=== PATIENT | male | born 1965 | race Caucasian/White ===

== ENCOUNTER 2023-08-13 13:50 | Outpatient (CLI) | payer MEDICAID, SELFPAY ==
--- NOTE | ~2023-08-13 | XR_ITS ---
XR thoracic spine 3V DATE: 08/13/2023 14:37 INDICATION: Thoracic spine pain TECHNIQUE: Standing AP and lateral and swimmer views COMPARISON: None FINDINGS: Osteopenia. Moderate degenerative disc disease at C4-5, C5-6 and to a greater extent C6-7. Mild degenerative spurring of the thoracic spine. No fracture or dislocation or bone destruction. The thoracic pedicles are intact. No paraspinal soft tissue thickening. IMPRESSION: Degenerative changes of the cervical and thoracic spine Osteopenia Reviewed, dictated and finalized at location B.
== END 2023-08-13 13:51 ==
PROVIDERS: PCP Nurse Practitioner; Visit Provider Nurse Practitioner
DX: M47.814 Spondylosis without myelopathy or radiculopathy, thoracic region (principal); M47.812 Spondylosis without myelopathy or radiculopathy, cervical region
CPT/HCPCS: 72072

== ENCOUNTER 2024-02-16 12:23 | Outpatient (CLI) | payer OTHER, SELFPAY ==
--- NOTE | ~2024-02-16 | XR_ITS ---
XR elbow RT 2V Ordering provider: Valentina Watson, ROPE COILING MACHINE OPERATOR-C History: . M25.521 - Pain in right elbow . Comparison: None. FINDINGS: BONES: No acute fracture or dislocation. JOINT SPACES: Normal. SOFT TISSUES: Unremarkable. No definite joint effusion. IMPRESSION: No acute osseous abnormality of the right elbow. Reviewed, dictated and finalized at location A.
--- NOTE | ~2024-02-16 | XR_ITS ---
XR_CERV2-3V_CR Ordering provider: Valentina Watson NP-C History: . M54.2 - Cervicalgia . Comparison: None. FINDINGS: VERTEBRAL BODIES: Normal height and alignment. No visible fracture or subluxation. The dens is intact . Mild degenerative changes. DISK SPACES: Well maintained. PARASPINOUS SOFT TISSUES: No prevertebral soft tissue swelling. IMPRESSION: No acute osseous abnormality cervical spine. Reviewed, dictated and finalized at location A.
== END 2024-02-16 12:24 | disposition home or self-care (01) ==
LOC: ANHIMG 12:26
PROVIDERS: PCP Nurse Practitioner; Visit Provider Nurse Practitioner
DX: M25.521 Pain in right elbow (principal); M54.2 Cervicalgia
CPT/HCPCS: 72040; 73070

== ENCOUNTER 2024-09-29 15:37 | Outpatient (CLI) | payer BC, SELFPAY ==
--- NOTE | ~2024-09-29 | US_ITS ---
EXAM: RENAL ULTRASOUND HISTORY: R80.9 - Proteinuria, unspecified COMPARISON: None FINDINGS: RIGHT KIDNEY: 12.6 x 6.9 x 6.7 cm. The parenchyma of the right kidney is unremarkable in echogenicity. No hydronephrosis or bulky renal calculi. LEFT KIDNEY: 13.8 x 6.6 x 5.8 cm No hydronephrosis or renal calculi. The parenchyma of the left kidney is unremarkable in echogenicity. BLADDER: Distended, and otherwise unremarkable. IMPRESSION: No hydronephrosis or renal calculi. Unremarkable sonographic evaluation of the bilateral kidneys, as detailed above Reviewed, dictated and finalized at location A.
== END 2024-09-29 15:38 | disposition home or self-care (01) ==
LOC: MICIMG 15:38
PROVIDERS: PCP Nurse Practitioner; Visit Provider Internal Medicine Nephrology
DX: R80.9 Proteinuria, unspecified (principal); E11.29 Type 2 diabetes mellitus with other diabetic kidney complication; I10 Essential (primary) hypertension
CPT/HCPCS: 76775

== ENCOUNTER 2024-11-05 00:53 | Day surgery (SDC) | payer BC, SELFPAY ==
[2024-10-28 16:13] VITALS: BMI 31.4
--- OUTSIDE RECORDS SUMMARY | 2024-11-05 00:55 | XMS_ITS | Clinical Summary ---
Author Organization [facility] [employer] Address [address] [place] [address] Care Team Providers Care Systems Integration Advisor Name Role Phone Valentina Watson NP Primary Care Provider [phone] Allergies No known active allergies Medications amLODIPine (NORVASC) 5 mg tablet Take 1 tablet (5 mg total) by mouth daily 0 Active atorvastatin (LIPITOR) 20 mg tablet Take 1 tablet (20 mg total) by mouth daily 0 Active glimepiride (AMARYL) 4 mg tablet TAKE 1 TABLET BY MOUTH ONCE DAILY IN THE MORNING WITH BREAKFAST 0 Active metFORMIN (GLUCOPHAGE) 1,000 mg tablet Take 1 tablet (1,000 mg total) by mouth 2 (two) times a day 0 Active aspirin 81 mg enteric coated tablet Take 1 tablet (81 mg total) by mouth daily Active albuterol sulfate (VENTOLIN HFA INHAL) Inhale Active cod liver oiL capsuleIndicat ions:Vitamin D Deficiency,vit rosado A deficiency 1 capsule Active garlic 1,000 mg capsule Take by mouth Activ e lisinopriL (PRINIVIL,ZEST RIL) 20 mg tablet Take 1 tablet (20 mg total) by mouth daily Active betamethasone valerate (VALISONE) 0.1 % ointment Apply topically 2 (two) times a day Apply for 3 week on and 1 week off then repeat. 30 g 3 4 Active Trulicity 1.5 mg/0.5 mL pen injector INJECT 1.5 MG SUBCUTANEOUSLY ONCE EVERY 7 DAYS 4 Active Active Problems Problem Noted Date Diagnosed Date Hypertension associated with diabetes 04/14/2023 Mixed diabetic hyperlipidemi a associated with type 2 diabetes mellitus 04/14/2023 Class 1 obesity due to exces s calories with serious comorbidity and body mass index (BMI) of 32.0 to 32.9 in adult 04/14/2023 Dysfunction of both eustachian tubes 01/29/2022 Assessment & Plan (01/30/2022 7:03 PM CDT): He has a long history of eustachian tube problems. I talked with him about further management of this. I am recommending treating with a low dose of prednisone along with a course of Ceftin for 2 weeks. That hopefully will help. If his symptoms continue I have recommended that he return. Consider myringotomy tubes at that time. He understands and is agreeable that. Surgical History Surgery Date Site/Laterality Comments SINUS SURGERY MYRINGOTOMY W/ TUBES Medical History Medical History Date Comments Essential hypertension Otitis externa, left Diabetes (HCC) Hyperlipidemia Family History Medical History Relation Name Comments Emphysema Father Heart disease Maternal Grandfather No Known Problems Mother Cancer Other Heart disease Paternal Grandfather Relation Name Status Comments Father Maternal Grandfather Mother Alive Other Paternal Grandfather Social History Tobacco Use Types Packs/Day Years Used Date Smoking Tobacco: Never Smokeless Tobacco: Never Tobacco Cessation:Counseling Given: Not Answered Sex and Gender Information Value Date Recorded Sex Assigned at Not on file Legal Sex 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:58 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 Gender Identity Not on file Sexual Orientation Not on file Obstetrics History Last Filed Vital Signs Vital Sign Reading Time Taken Comments Blood Pressure 134/70 04/15/2024 4:06 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 Pulse 79 04/15/2024 3:42 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 Temperature 36.8 C (98.2 F) 02/09/2020 9:01 AM CDT Respiratory Rate 18 01/29/2022 4:23 PM CDT Oxygen Saturation 95% 04/15/2024 3:42 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 Inhaled Oxygen Concentration - - Weight 102.5 kg (226 lb) 04/15/2024 3:42 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 Height 180.3 cm (5' 11) 04/15/2024 3:42 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 Body Mass Index 31.52 04/15/2024 3:42 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 Plan of Treatment Health Maintenance Due Date Last Done Comments Albumin Creatinine Ratio, Urine 1967 Colon Cancer Screening-Colonoscopy 1967 Depression Screening 1967 Hemoglobin A1C 1967 Hepatitis C Screening 1967 Prostate Cancer Screening-PSA 1967 eGFR 1967 Dilated Eye Exam 1967 Foot Exam 1967 DTaP/Tdap/Td Vaccine (1 - Tdap) 10/20/1978 Hepatitis B Screening 10/20/1985 Regular Well Visit/Exam 18-64 10/20/1985 Pneumococcal vaccine <65 (1 of 2 - PCV) 10/20/1986 Zoster Vaccine (1 of 2) 10/20/2017 Covid-19 Vaccine ( - season) 2024 05/04/2021, 08/25/2020, 08/04/2020 Influenza Vaccine (Season Ended) 2025 Lipid Panel 04/15/2025 04/15/2024, 03/27, 04/30/2015 Procedures Procedure Name Priority Date/Time Associated Diagnosis Comments POCT LIPID PANEL Routine 04/15/2024 3:50 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 Lipid screening from Last 3 Months or Most Recently Relevant to Health Maintenance Results * POCT lipid panel (04/15/2024 3:50 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) Cholesterol, POC 138 mg/dL HDL, POC 25 mg/dL Triglycerides, POC 341 mg/dL LDL Cholesterol POC 44 mg/dL Chol/HDL Ratio, POC 1.8 Non-HDL Cholesterol, POC 112 mg/dL Cholesterol Total, POC 138 mg/dL Capillary blood 04/15/2024 3 :50 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 iVcenta Gottlieb NP POINT OF CARE TEST ORDERA BLES Final Result from Last 3 Months or Most Recently Relevant to Health Maintenance Insurance [facility] Advance Directives For more information, please contact: [phone] Documents on File Type Date Recorded Patient Reeling And Tubing Machine Operator Expl anation ADVANCE DIRECTIVE 09/13/2012 12:00 AM AMIE Shin OF BOILER REPAIRMAN FINANCIAL/MEDICAL Care Teams Systems Integration Advisor Relationship Specialty Start Date End Date Valentina Watson NP PCP - General Internal Medicine 11/07/23
--- OUTSIDE RECORDS SUMMARY | 2024-11-05 00:55 | XMS_ITS | Referral Summary ---
Author Organization [facility] [employer] Address [address] [email or web address] [address] Care Team Providers Care Dry Cleaner Helper Name Role Phone Valentina Watson NP Primary Care Provider [phone]- [phone] Allergies No known active allergies Medications amLODIPine [...] time. He understands and is agreeable that. Social History Tobacco Use Types Packs/Day Years Used Date Smoking Tobacco: Never Smokeless Tobacco: Never Tobacco Cessation:Counseling Given: Not Answered Sex and Gender Information Value Date Recorded Sex Assigned at Not on file Legal Sex Male 5:58 PM PAINT GRINDER Gender Identity Not on file Sexual Orientation Not on file Last Filed Vital Signs Vital Sign Reading Time Taken Comments Blood Pressure 134/70 04/15/2024 4:06 PM PAINT GRINDER Pulse 79 04/15/2024 3:42 PM PAINT GRINDER Temperature 36.8 C (98.2 F) 02/09/2020 9:01 AM CDT Respiratory Rate 18 01/29/2022 4:23 PM CDT Oxygen Saturation 95% 04/15/2024 3:42 PM PAINT GRINDER Inhaled Oxygen Concentration - - Weight 102.5 kg (226 lb) 04/15/2024 3:42 PM PAINT GRINDER Height 180.3 cm (5' 11) 04/15/2024 3:42 PM PAINT GRINDER Body Mass Index 31.52 04/15/2024 3:42 PM PAINT GRINDER Plan of Treatment Not on file Procedures Procedure Name Priority Date/Time Associated Diagnosis Comments POCT LIPID PANEL Routine 04/15/2024 3:50 PM PAINT GRINDER Lipid screening from Last 3 Months or Most Recently Relevant to Health Maintenance Results * POCT lipid panel (04/15/2024 3:50 PM PAINT GRINDER) Cholesterol, POC 138 mg/dL HDL, POC 25 mg/dL Triglycerides, POC 341 mg/dL LDL Cholesterol POC 44 mg/dL Chol/HDL Ratio, POC 1.8 Non-HDL Cholesterol, POC 112 mg/dL Cholesterol Total, POC 138 mg/dL Capillary blood 04/15/2024 3 :50 PM PAINT GRINDER Vicenta Gottlieb NP POINT OF CARE TEST ORDERA BLES Final Result from Last 3 Months or Most Recently Relevant to Health Maintenance Insurance [facility] Advance Directives For more information, please contact: [phone] Documents on File Type Date Recorded Patient Rn Medication Expl anation ADVANCE DIRECTIVE 09/13/2012 12:00 AM AMIE Shin OF MECHANICAL LABORATORY TECHNICIAN FINANCIAL/MEDICAL Care Teams Dry Cleaner Helper Relationship Specialty Start Date End Date Valentina Watson NP PCP - General Internal Medicine 11/07/23
--- OUTSIDE RECORDS SUMMARY | 2024-11-05 00:55 | XMS_ITS | Clinical Summary ---
Author Organization [facility] [employer] Address [address] [place] [address] Care Team Providers Care Data Integrity Consultant Name Role Phone Valentina Watson PATTERN VAULT CLERK-TAILOR HELPER Primary Care Provider + Source Comments [facility],non-owned Affiliates and Associated Physician Practices is amultiple site organization consisting of ambulatory clinics and hospital sitesin [place], [place], [place] and [place]. This disclosure is being madepursuant to the Care Everywhere program and may not contain all information available regarding this patient. Last updated 18.[facility] [employer] Allergies No known active allergies Medications * Be aware that medications may not be up to date on this document. Alwaysverify current medications with the patient. metFORMIN CR osmotic 24hr (Fortamet) 1000 MG (OSM) tablet Take 1 (one) tablet by mouth 2 times daily Active Mounjaro 5 MG/0.5ML injection INJECT 5 MG SUBCUTANEOUSLY ONCE A WEEK 4 Active glimepiride (Amaryl) 4 MG tablet TAKE 1 TABLET BY MOUTH IN THE MORNING WITH BREAKFAST 4 Active lisinopril (Prinivil; Zestril) 20 MG tablet Take 1 (one) tablet by mouth once daily 4 Active amLODIPine (Norvasc) 5 MG tablet Take 1 (one) tablet by mouth once daily 4 Active atorvastatin (Lipitor) 20 MG tablet Take 1 (one) tablet by mouth at bedtime 4 Active aspirin EC (Ecotrin) 81 MG tablet Take 1 (one) tablet by mouth once daily Active GARLIC PO Active miconazole (Micatin) 2 % creamIndicatio ns:Tinea Cruris Apply to affected area 2 times daily Reasons: Ringworm of Groin Area 60 g Active Active Problems No known active problems Social History Tobacco Use Types Packs/Day Years Used Date Smoking Tobacco: Never Smokeless Tobacco: Never Tobacco Cessation:Counseling Given: Not Answered Alcohol Use Standard Drinks/Week Comments Not Currently 0 (1 standard drink = 0.6 oz pur e alcohol) Sex and Gender Information Value Date Recorded Sex Assigned at Not on file Legal Sex Male 5:40 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 Pulse 88 09/09/2023 1:42 PM CDT Temperature 36.8 C (98.3 F) 09/09/2023 1:42 PM CDT Respiratory Rate 18 09/09/2023 1:42 PM CDT Oxygen Saturation 98% 09/09/2023 1:4 2 PM CDT Inhaled Oxygen Concentration - - Weight 102.1 kg (225 lb) 09/09/2023 1: 42 PM CDT Height 180.3 cm (5' 11) 09/09/2023 1:4 2 PM CDT Body Mass Index 31.38 09/09/2023 1:42 PM CDT Plan of Treatment Health Maintenance Due Date Last Done Comments COLOGUARD (AGES 45-75) - COL ON CA SCREENING 1967 COLON MONITORING 1967 COLONOSCOPY - COLON CA SCREENING 1967 CT COLONOGRAPHY - COLON CA SCREENING 1967 Colorectal Cancer Screening 1967 FIT - COLON CA SCREENING 1967 FLEX SIG - COLON CA SCREENING 1967 HIV SCREENING 10/20/1982 HEPATITIS C SCREENING 10/16/1985 DTAP/TDAP/TD VACCINES (1 - Tdap) 10/20/1986 HEPATITIS B VACCINE (1 of 3 - 19+ 3-dose series) 10/20/1986 PNEUMOCOCCAL VACCINE 50+ (1 of 1 - PCV) 10/20/2017 ZOSTER VACCINE (1 of 2) 10/20/2017 COVID-19 VACCINE ( - 2023-2 5 season) 2024 DEPRESSION SCREENING 05/26/2024 INFLUENZA VACCINE (Season Ended) 2025 SCREENING FOR DIABETES 04/14/2026 04/14/2023 HIB VACCINE Aged Out No longer eligi ble based on patient's age to complete this topic HPV VACCINE Aged Out No longer eligi ble based on patient's age to complete this topic MENINGOCOCCAL (Group B) VACC INE SHARED DECISION-MAKING Aged Out No longer eligibl e based on patient's age to complete this topic MENINGOCOCCAL GROUPS A/C/Y/W VACCINE Aged Out No longer eligible b ased on patient's age to complete this topic Insurance [facility] Care Teams Data Integrity Consultant Relationship Specialty Start Date End Date Valentina Watson APRN-TAILOR HELPER [address] [place] [address] PCP - General Nurse Practitioner Family 07/31/23
[2024-11-05 08:23] VITALS: BP 148/86; PULSE 79; RESP 18; TEMP 36.2; O2SAT 99
--- NOTE | 2024-11-05 08:24 | WPDANESEPPF ---
Anes - Initial Pre Proc Eval Procedure: Operation Date: 11/05/24 09:00 Proposed Procedures p Screening Colonoscopy - Yusuf Qiu MD Date/Time: 11/05/24 08:24 Surgeon: Yusuf Qiu MD Pre Op Diagnosis: Screening Patient Data Age: 59 Gender: M Height: 1.8 m Weight: 100 kg Last Vital Signs Temp 36.2 C L 11/05/24 08:23 Pulse 79 11/05/24 08:23 Resp 18 11/05/24 08:23 BP 148/86 H 11/05/24 08:23 Pulse Ox 99 11/05/24 08:23 O2 Del Method Room Air 11/05/24 08:23 Allergies Allergy/AdvReac Type Severity Reaction Status Date / Time No Known Allergies Allergy Verified 11/05/24 08:18 Home Medications ?Medication ?Instructions ?Recorded ?Confirmed ?Type aspirin 81 mg tablet,delayed 81 mg PO DAILY #30 tabs 04/09/19 11/05/24 Rx release (Adult Aspirin Regimen) garlic 1,000 mg capsule 1,000 mg PO DAILY 12/24/19 11/05/24 History metformin 1,000 mg tablet See Rx Instructions .Route 04/13/24 11/05/24 Rx .COMPLEX #180 tabs dulaglutide 3 mg/0.5 mL 3 mg (0.5 mL) subcut WEEKLY #6 mL 06/21/24 11/05/24 Rx subcutaneous pen injector glimepiride 4 mg tablet See Rx Instructions .Route 06/24/24 11/05/24 Rx .COMPLEX #90 tabs atorvastatin 20 mg tablet See Rx Instructions .Route 08/19/24 11/05/24 Rx .COMPLEX #90 tabs lisinopril 20 mg tablet See Rx Instructions .Route 09/13/24 11/05/24 Rx .COMPLEX #90 tabs amlodipine 5 mg tablet See Rx Instructions .Route 10/12/24 11/05/24 Rx .COMPLEX #90 tabs cholecalciferol (vit D3) 1,000 1 tablet PO DAILY 10/28/24 11/05/24 History unit-vitamin K2 (MK4) 100 mcg tablet (K2 Plus D3) Patient hx anesthesia problems: none Family hx anesthesia problems: none Results Review: All pre-operative results and documents have been reviewed as part of the pre-operative evaluation. [facility] Past Medical History Medical History Microalbuminuria Chronic otitis media of right ear with effusion Erectile dysfunction Essential (primary) hypertension Metabolic syndrome Mixed hyperlipidemia Obesity, unspecified Type 2 diabetes mellitus without complication Family History Family History Grandparent Family history of cardiovascular disease Acute myocardial infarction Father Family history of coronary artery disease Social History Social History Smoking status: Never smoker Alcohol intake: current Alcohol use details: socially Substance use: never Substance use type: does not use Lack of Transportation: No Lack of Food: Never True Current Housing: I Have Housing Concerned About Future Housing: No Difficulty Paying Gas/Electric Bills: No Difficulty Paying for Meds: No Currently Unemployed: No Education: High School Diploma/GED Difficulty w/ Childcare or Family Care: No Living arrangements: with family Additional living arrangements comments: Occupation/Education: occupation Gender identity (if verbalized by the patient): Male Sexual Orientation (if Verbalized by the Patient): Straight or Heterosexual Spiritual care concerns: Yes Agree to blood products: No Anes - Eval Final PreProcedure Day of Procedure 11/05/24 08:24 Patient weight: obese Lungs: clear to auscultation Airway: Mallampati scale class II Neurological: alert and oriented Last oral intake: >/= 8 hours ASA classification: III Emergent: no Anesthetic plan: proceed Anesthesia type and monitoring: general GIVS and standard monitoring Results Review: All pre-operative results and documents have been reviewed as part of the pre-operative evaluation. Informed Consent: The patient's anesthetic plan and its attendant risks and benefits were discussed with the patient/family/POA. Questions were solicited and answers provided to the satisfaction of the patient/family/POA.
[2024-11-05] MEDS: LACTATED RINGERS 1,000 ML 150 ML IV CONT (08:29)
[2024-11-05 08:36] LABS: Glucose Point of Care 196 mg/dl (65-105)
--- NOTE | 2024-11-05 09:25 | PM.IMHP ---
H&P: HPI History of Present Illness Date/Time: 11/05/24 09:25 Chief Complaint: Screening colonoscopy Narrative: This is the patient's section colonoscopy. There are no GI symptoms and there is no family history of colorectal cancer. Review of Systems Review of Systems: All systems reviewed & are unremarkable except as noted in HPI and below PMFSH Past Medical History Medical History Microalbuminuria Chronic otitis media of right ear with effusion Erectile dysfunction Essential (primary) hypertension Metabolic syndrome Mixed hyperlipidemia Obesity, unspecified Type 2 diabetes mellitus without complication Family History Family History Grandparent Family history of cardiovascular disease Acute myocardial infarction Father Family history of coronary artery disease Social History Social History Smoking status: Never smoker Alcohol intake: current Alcohol use details: socially Substance use: never Substance use type: does not use Lack of Transportation: No Lack of Food: Never True Current Housing: I Have Housing Concerned About Future Housing: No Difficulty Paying Gas/Electric Bills: No Difficulty Paying for Meds: No Currently Unemployed: No Education: High School Diploma/GED Difficulty w/ Childcare or Family Care: No Living arrangements: with family Additional living arrangements comments: Occupation/Education: occupation Gender identity (if verbalized by the patient): Male Sexual Orientation (if Verbalized by the Patient): Straight or Heterosexual Spiritual care concerns: Yes Agree to blood products: No Meds Home Medications and Allergies Home Medications ?Medication ?Instructions ?Recorded ?Confirmed ?Type aspirin 81 mg tablet,delayed 81 mg PO DAILY #30 tabs 04/09/19 11/05/24 Rx release (Adult Aspirin Regimen) garlic 1,000 mg capsule 1,000 mg PO DAILY 12/24/19 11/05/24 History metformin 1,000 mg tablet See Rx Instructions .Route 04/13/24 11/05/24 Rx .COMPLEX #180 tabs dulaglutide 3 mg/0.5 mL 3 mg (0.5 mL) subcut WEEKLY #6 mL 06/21/24 11/05/24 Rx subcutaneous pen injector glimepiride 4 mg tablet See Rx Instructions .Route 06/24/24 11/05/24 Rx .COMPLEX #90 tabs atorvastatin 20 mg tablet See Rx Instructions .Route 08/19/24 11/05/24 Rx .COMPLEX #90 tabs lisinopril 20 mg tablet See Rx Instructions .Route 09/13/24 11/05/24 Rx .COMPLEX #90 tabs amlodipine 5 mg tablet See Rx Instructions .Route 10/12/24 11/05/24 Rx .COMPLEX #90 tabs cholecalciferol (vit D3) 1,000 1 tablet PO DAILY 10/28/24 11/05/24 History unit-vitamin K2 (MK4) 100 mcg tablet (K2 Plus D3) Allergies Allergy/AdvReac Type Severity Reaction Status Date / Time No Known Allergies Allergy Verified 11/05/24 08:18 Vital Signs Vital Signs - 24 hr 11/05/24 08:23 Temperature 97.2 F L Pulse Rate 79 Respiratory Rate 18 Blood Pressure 148/86 H Pulse Oximetry 99 Oxygen Delivery Room Air Exam Const: General: cooperative and healthy appearing Resp: Effort & Inspection: normal respiratory effort and able to speak in complete sentences Auscultation: clear to auscultation bilaterally Cardio: Rate: regular rate Rhythm: regular rhythm GI: Inspection: normal to inspection GI Palp: No No hepatosplenomegaly present Auscultation: normal bowel sounds Rectal Exam: deferred Skin: General skin exam: normal color Psych: Appearance: grossly normal Mental Status: mental status grossly normal Assessment and Plan Assessment and plan (1) Screening for colon cancer: Code(s): Z12.11 - Encounter for screening for malignant neoplasm of colon Status: Acute Assessment and Plan: The patient is deemed a good candidate for the procedure. Consent signed. Will proceed.
[2024-11-05 09:53] VITALS: BP 146/90; PULSE 71; RESP 19; O2SAT 98
[2024-11-05 10:03] VITALS: BP 136/96; PULSE 70; RESP 23; O2SAT 98
[2024-11-05 10:13] VITALS: BP 133/88; PULSE 68; RESP 18; O2SAT 98
== END 2024-11-05 10:30 | disposition home or self-care (01) ==
PROVIDERS: PCP Nurse Practitioner; Referring Provider Nurse Practitioner; Visit Provider Internal Medicine Gastroenterology
PROC: 0DJD8ZZ Inspection of Lower Intestinal Tract, Via Natural or Artificial Opening Endoscopic (ICD-10-PCS; CPT 45378; principal; 2024-11-05 09:00)
DX: Z12.11 Encounter for screening for malignant neoplasm of colon (principal); E11.9 Type 2 diabetes mellitus without complications; E66.9 Obesity, unspecified; Z68.30 Body mass index [BMI] 30.0-30.9, adult
CPT/HCPCS: 45378; 82948; J2003; J2704; J7120